=== PATIENT | female | born 1960 | race Caucasian/White ===

== ENCOUNTER 2025-05-19 13:07 | Outpatient (CLI) | payer BC, SELFPAY ==
--- NOTE | 2025-05-19 15:00 | CRLHL7_ITS ---
For Patients: As a result of the Cures Act, medical imaging exams and procedure reports are released immediately into your electronic medical record. You may view this report before your referring provider. If you have questions, please contact your health care provider. Indication: RT ANKLE POST SURGICAL, NON HEALING Technique: Right ankle 3 views Comparison: None Findings: Postop changes to the distal tibia and fibula. Narrowing and spurring at the tibiotalar joint with exuberant hypertrophic spur formation. Chronic ossicle adjacent to the medial malleolus. Szyk-[id number] alignment noted with chronic deformity of the medial talar dome. No acute fracture. No soft tissue gas. 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 No evidence of acute osteomyelitis. Dictated by Marlo Wall MD @ 05/20/2025 8:33:50 AM (Electronically Signed)
== END 2025-05-19 13:08 | disposition home or self-care (01) ==
PROVIDERS: PCP Physician Assistant; Referring Provider Physician Assistant Medical; Visit Provider Physician Assistant Surgical
DX: T81.31XA Disruption of external operation (surgical) wound, not elsewhere classified, initial encounter (principal); S81.801A Unspecified open wound, right lower leg, initial encounter
CPT/HCPCS: 73610; G0463

== ENCOUNTER 2025-05-26 14:13 | Outpatient (CLI) | payer BC, SELFPAY | END 2025-05-26 14:14 | disposition home or self-care (01) | LOC: WOUND 14:13 | PROVIDERS: PCP Physician Assistant; Visit Provider Family Medicine | DX: T81.31XA Disruption of external operation (surgical) wound, not elsewhere classified, initial encounter (principal); S81.801A Unspecified open wound, right lower leg, initial encounter | CPT/HCPCS: 11042 ==

== ENCOUNTER 2025-06-02 14:20 | Outpatient (CLI) | payer BC, SELFPAY | END 2025-06-02 14:21 | disposition home or self-care (01) | LOC: WOUND 14:20 | PROVIDERS: PCP Physician Assistant; Visit Provider Physician Assistant Surgical | DX: T81.31XA Disruption of external operation (surgical) wound, not elsewhere classified, initial encounter (principal); S81.801A Unspecified open wound, right lower leg, initial encounter | CPT/HCPCS: G0463 ==

== ENCOUNTER 2025-06-16 14:18 | Outpatient (CLI) | payer BC, SELFPAY | END 2025-06-16 14:19 | disposition home or self-care (01) | LOC: WOUND 14:18 | PROVIDERS: PCP Physician Assistant; Visit Provider Physician Assistant Surgical | DX: T81.31XA Disruption of external operation (surgical) wound, not elsewhere classified, initial encounter (principal); S81.801A Unspecified open wound, right lower leg, initial encounter | CPT/HCPCS: G0463 ==

== ENCOUNTER 2025-06-30 14:12 | Outpatient (CLI) | payer BC, SELFPAY | END 2025-06-30 14:13 | disposition home or self-care (01) | LOC: WOUND 14:12 | PROVIDERS: PCP Physician Assistant; Visit Provider Physician Assistant Surgical | DX: T81.30XA Disruption of wound, unspecified, initial encounter (principal); I89.0 Lymphedema, not elsewhere classified; I10 Essential (primary) hypertension; G83.4 Cauda equina syndrome | CPT/HCPCS: G0463 ==